=== PATIENT | female | born 1930 | race Caucasian/White ===

== ENCOUNTER 2016-02-20 12:35 | Inpatient (IN) | payer MEDICARE ==
[2016-02-20] VITALS (7 sets, daily range): BP systolic 115–140; RESP 16–23; TEMP 98.2; Ht 170.2 cm; Wt 95.5 kg
[~2016-02-20] VITALS: Ht 170.2 cm; Wt 95.5 kg
[2016-02-20] MEDS ORDERED: niCARdipine 20MG/200ML 200 ML IV ONE (12:40)
[2016-02-20] MEDS ORDERED: SALINE FLUSH 10 ML FLUSH PRN (12:40)
[2016-02-20] MEDS ORDERED: ACETAMINOPHEN 325 MG TAB PO PRN (12:40)
[2016-02-20] MEDS ORDERED: niCARdipine INJ 25 MG in SODIUM CHLORIDE 0.9% 250 ML IV SCH (12:40)
[2016-02-20] MEDS ORDERED: GLUCAGON 1 MG VIAL IM PRN (12:40)
[2016-02-20] MEDS ORDERED: LABETALOL 100 MG/20 ML VIAL IV PRN (12:40)
[2016-02-20] MEDS ORDERED: DEXTROSE 50% SYRINGE 50 ML IV PRN (12:40)
[2016-02-20] MEDS ORDERED: SODIUM CHLORIDE 0.9% 1,000 ML IV SCH (12:40)
[2016-02-20] MEDS ORDERED: ONDANSETRON 4 MG VIAL IV PRN (12:45)
[2016-02-20] MEDS: SALINE FLUSH 10 ML FLUSH SCH (20:08)
[2016-02-20] MEDS: Atorvastatin 20 MG TAB PO SCH (20:08)
[2016-02-21] VITALS (19 sets, daily range): BP systolic 118–149; RESP 14–27; TEMP 98–98.4
[2016-02-21] MEDS: SODIUM CHLORIDE 0.9% FLUSH BAG 500 ML IV SCH (06:00)
[2016-02-21] MEDS ORDERED: OPTIRAY 350 100 ML VIAL HMH IV ONE ×2 (07:00→07:01)
[2016-02-21] MEDS: SALINE FLUSH 10 ML FLUSH SCH ×2 (08:11→20:00)
[2016-02-21] MEDS: PANTOPRAZOLE 40 MG VIAL IV SCH (08:13)
[2016-02-21] MEDS ORDERED: SODIUM CHLORIDE 0.9% 1,000 ML IV SCH (09:50)
[2016-02-21] MEDS ORDERED: NITROGLYCERIN SL 0.4 MG TAB SL PRN (09:50)
[2016-02-21] MEDS: BUMETANIDE 1 MG TAB PO SCH (20:55)
[2016-02-21] MEDS: LABETALOL 100 MG TAB PO SCH (20:55)
[2016-02-21] MEDS: Atorvastatin 20 MG TAB PO SCH (20:55)
[2016-02-22 03:00] VITALS: BP_SYST 150; RESP 20; TEMP 98.6
[2016-02-22] MEDS: SALINE FLUSH 10 ML FLUSH SCH ×2 (08:00→20:09)
[2016-02-22 08:17] VITALS: BP_SYST 175; RESP 18; TEMP 97.9
[2016-02-22] MEDS: BUMETANIDE 1 MG TAB PO SCH ×2 (09:38→20:09)
[2016-02-22] MEDS: PANTOPRAZOLE 40 MG VIAL IV SCH (09:38)
[2016-02-22] MEDS: LINZESS 145 MCG CAPSULE PO SCH (09:38)
[2016-02-22] MEDS: LABETALOL 100 MG TAB PO SCH ×2 (09:39→20:09)
[2016-02-22] MEDS: SERTRALINE 100 MG TAB PO SCH (09:39)
[2016-02-22] MEDS: LEVOTHYROXINE 0.125 MG TAB PO SCH (09:39)
[2016-02-22 11:50] VITALS: BP_SYST 172; RESP 18; TEMP 97.8
[2016-02-22] MEDS: ASPIRIN EC 81 MG TAB PO SCH (12:24)
[2016-02-22] MEDS: LISINOPRIL 10 MG TAB PO SCH (12:24)
[2016-02-22] MEDS: ACETAMINOPHEN 500 MG TAB PO SCH (15:28)
[2016-02-22 16:58] VITALS: BP_SYST 170; RESP 18; TEMP 98.3
[2016-02-22 19:23] VITALS: BP_SYST 144; RESP 18; TEMP 97.8
[2016-02-22] MEDS: Atorvastatin 20 MG TAB PO SCH (20:09)
[2016-02-22] MEDS: TRAZODONE 50 MG TAB PO SCH (20:09)
[2016-02-22 22:17] VITALS: BP_SYST 99; RESP 18; TEMP 97.9
[2016-02-23 03:04] VITALS: BP_SYST 154; RESP 18; TEMP 97.9
[2016-02-23] MEDS: SODIUM CHLORIDE 0.9% FLUSH BAG 500 ML IV SCH (05:10)
[2016-02-23 07:36] VITALS: BP_SYST 127; RESP 18; TEMP 98.5
[2016-02-23] MEDS: LISINOPRIL 10 MG TAB PO SCH (08:09)
[2016-02-23] MEDS: SALINE FLUSH 10 ML FLUSH SCH ×2 (08:09→20:34)
[2016-02-23] MEDS: ENOXAPARIN 40 MG/0.4 ML SYR SUBQ SCH (08:09)
[2016-02-23] MEDS: SERTRALINE 100 MG TAB PO SCH (08:09)
[2016-02-23] MEDS: BUMETANIDE 1 MG TAB PO SCH ×2 (08:10→20:30)
[2016-02-23] MEDS: LEVOTHYROXINE 0.125 MG TAB PO SCH (08:10)
[2016-02-23] MEDS: ASPIRIN EC 81 MG TAB PO SCH (08:10)
[2016-02-23] MEDS: LABETALOL 100 MG TAB PO SCH ×2 (08:10→20:31)
[2016-02-23] MEDS: LINZESS 145 MCG CAPSULE PO SCH (08:10)
[2016-02-23] MEDS: ACETAMINOPHEN 500 MG TAB PO SCH ×3 (08:12→16:17)
[2016-02-23] MEDS: PANTOPRAZOLE 40 MG VIAL IV SCH (08:13)
[2016-02-23 11:58] VITALS: BP_SYST 107; RESP 18; TEMP 98.6
[2016-02-23 15:20] VITALS: BP_SYST 108; RESP 18; TEMP 98.7
[2016-02-23 19:34] VITALS: BP_SYST 127; RESP 20; TEMP 97.5
[2016-02-23] MEDS: Atorvastatin 20 MG TAB PO SCH (20:30)
[2016-02-23] MEDS: FAMOTIDINE 10 MG TAB PO SCH (20:31)
[2016-02-23] MEDS: TRAZODONE 50 MG TAB PO SCH (21:00)
[2016-02-23 23:16] VITALS: BP_SYST 124; RESP 20; TEMP 97.4
[2016-02-24 03:14] VITALS: BP_SYST 109; RESP 20; TEMP 97.6
[2016-02-24] MEDS: SODIUM CHLORIDE 0.9% FLUSH BAG 500 ML IV SCH (05:10)
[2016-02-24 07:24] VITALS: TEMP 98.4
[2016-02-24 07:25] VITALS: BP_SYST 124; RESP 24
[2016-02-24] MEDS ORDERED: MISSING DOSE XX ONE (08:30)
[2016-02-24] MEDS: ACETAMINOPHEN 500 MG TAB PO SCH ×2 (08:33)
[2016-02-24] MEDS: SALINE FLUSH 10 ML FLUSH SCH (08:33)
[2016-02-24] MEDS: LINZESS 145 MCG CAPSULE PO SCH (08:34)
[2016-02-24] MEDS: BUMETANIDE 1 MG TAB PO SCH (08:34)
[2016-02-24] MEDS: LEVOTHYROXINE 0.125 MG TAB PO SCH (08:34)
[2016-02-24] MEDS: SERTRALINE 100 MG TAB PO SCH (08:34)
[2016-02-24] MEDS: LISINOPRIL 10 MG TAB PO SCH (08:34)
[2016-02-24] MEDS: LABETALOL 100 MG TAB PO SCH (08:34)
[2016-02-24] MEDS: ENOXAPARIN 40 MG/0.4 ML SYR SUBQ SCH (08:42)
[2016-02-24] MEDS: ASPIRIN EC 81 MG TAB PO SCH (09:46)
[2016-02-24] MEDS: FAMOTIDINE 10 MG TAB PO SCH (09:46)
[2016-02-24 11:20] VITALS: BP_SYST 91; TEMP 98.1
[2016-02-24 11:21] VITALS: RESP 24
[2016-02-24 12:07] VITALS: BP_SYST 124; RESP 24; TEMP 98.4
== END 2016-02-24 13:08 | disposition home health service (06) | DRG 62 ==
LOC: ENRESERVDT → ENRESERVTM → CCU 13:17 → ENPENDDIS 13:17 → PCU2 02-21 15:24 → MC2 02-23 10:55 → PCU2 02-23 11:02
PROVIDERS: ADMIT Family Medicine; ATTEND Family Medicine
CPT/HCPCS: 70450; 70496; 70551; 71010; 82947; 93306; 94799; 99232; 99233; 99239; 99291